=== PATIENT | female | born 1950 | race Caucasian/White ===

== ENCOUNTER 2020-06-30 10:43 | Observation (INO) ==
[2020-06-30] MEDS ORDERED: Isovue-370 500 ML BOTTLE IVP ONE (11:14)
[2020-06-30 11:21] LABS: Basophils % 0.1 %; Eosinophils # 0.1 K/mcL (0.0-0.6); Eosinophils % 0.2 %; Hematocrit 24.8 % (35.3-44.9); Hemoglobin 7.3 g/dL (11.5-15.4); Immature Granulocytes % 0.6 % (0-4); Lymphocytes # 1.3 K/mcL (0.6-4.6); Lymphocytes % 5.5 %; Mean Corpuscular HGB Conc 29.4 g/dL (31.6-35.5); Mean Corpuscular Hemoglobin 27.8 pg (28.0-33.3); Mean Corpuscular Volume 94.3 fL (83.0-100.0); Mean Platelet Volume 9.1 fL (9.4-12.4); Monocytes # 1.2 K/mcL (0.0-1.3); Neutrophils # 20.6 K/mcL (1.6-8.9); Platelet Count 515 K/mcL (140-400); Red Blood Count 2.63 M/mcL (3.82-4.97); Red Cell Distribution Width 16.4 % (11.5-14.5); Segmented Neutrophils % 88.6 %; White Blood Count 23.3 K/mcL (4.3-11.1)
[2020-06-30] MEDS ORDERED: Pantoprazole 40 MG VIAL IVP ONE (11:28)
[2020-06-30 11:45] LABS: Alanine Aminotransferase 10 Units/L (7-52); Alkaline Phosphatase 116 Units/L (34-104); Aspartate Amino Transferase 11 Units/L (13-39); BUN/Creatinine Ratio 29 (6-26); Bilirubin,Total 0.2 mg/dL (0.3-1.0); Blood Urea Nitrogen 17 mg/dL (8-23); Calcium 8.2 mg/dL (8.6-10.3); Carbon Dioxide 30 mEq/L (23-29); Chloride 103 mEq/L (98-107); Glucose 81 mg/dL (70-105); Lipase 7 Units/L (11-82); Osmolality,Calculated 289 (280-300); Potassium 3.7 mEq/L (3.5-5.1); Sodium 139 mEq/L (136-145); eGFR For African Americans > 60 (> 60); eGFR For Non-African Americans > 60 (> 60)
[2020-06-30 12:09] LABS: Troponin I 0.04 ng/mL (< 0.04)
[2020-06-30] MEDS ORDERED: *HR* FentaNYL (PF) 100 MCG/2 ML VIAL IVP ONE (12:48)
[2020-06-30] MEDS ORDERED: Azithromycin 250 MG TABLET PO ONE (13:16)
[2020-06-30] MEDS ORDERED: CefTRIAXone 1,000 MG VIAL IM ONE (13:16)
[2020-06-30] MEDS ORDERED: cefTRIAXone 1,000 MG in Water for inj. (sterile) 10 ML IVP ONE (13:29)
[2020-06-30] MEDS ORDERED: Azithromycin 500 MG in 0.9 % Sodium Chloride 250 ML IVPB ONE (13:29)
[2020-06-30] MEDS ORDERED: 0.9 % Sodium Chloride 250 ML ONE (14:20)
[2020-06-30] MEDS ORDERED: Naloxone 0.4 MG/ML INJ IVP PRN (15:36)
[2020-06-30] MEDS ORDERED: GI Cocktail 40 ML EACH PO ONE (15:38)
[2020-06-30] MEDS ORDERED: Fluticasone Propionate Nasal 50 MCG/SPRAY BOTTLE NS PRN (16:52)
[2020-06-30] MEDS ORDERED: Loratadine 10 MG TABLET PO PRN (16:52)
[2020-06-30] MEDS ORDERED: tiZANidine 4 MG TABLET PO PRN (16:52)
[2020-06-30] MEDS ORDERED: 0.9 % Sodium Chloride 1,000 ML ONE (16:57)
[2020-06-30] MEDS ORDERED: 0.9 % Sodium Chloride 500 ML IVC ONE (17:16)
[2020-06-30] MEDS: Pantoprazole 40 MG VIAL IVP SCH (17:24)
[2020-06-30] MEDS: Gabapentin 400 MG CAPSULE PO SCH ×2 (17:24→20:42)
[2020-06-30] MEDS: 0.9 % Sodium Chloride 1,000 ML IVC SCH (17:24)
[2020-06-30] MEDS: Ipratropium/Albuterol Neb 3 ML IH SCH (20:33)
[2020-06-30] MEDS: Sucralfate 1 GM TABLET PO SCH (20:42)
[2020-06-30] MEDS: traZODone 50 MG TABLET PO SCH (20:42)
[2020-07-01] MEDS: Ipratropium/Albuterol Neb 3 ML IH SCH ×4 (00:18→11:02)
[2020-07-01] MEDS: Pantoprazole 40 MG VIAL IVP SCH ×2 (05:21→19:25)
[2020-07-01] MEDS: 0.9 % Sodium Chloride 1,000 ML IVC SCH (05:22)
[2020-07-01 06:56] LABS: Basophils % 0.1 %; Eosinophils # 0.1 K/mcL (0.0-0.6); Eosinophils % 0.4 %; Hematocrit 27.4 % (35.3-44.9); Hemoglobin 8.1 g/dL (11.5-15.4); Immature Granulocytes % 0.6 % (0-4); Lymphocytes % 4.3 %; Mean Corpuscular HGB Conc 29.6 g/dL (31.6-35.5); Mean Corpuscular Hemoglobin 27.6 pg (28.0-33.3); Mean Corpuscular Volume 93.5 fL (83.0-100.0); Mean Platelet Volume 9.4 fL (9.4-12.4); Monocytes # 1.1 K/mcL (0.0-1.3); Monocytes % 4.5 %; Neutrophils # 21.4 K/mcL (1.6-8.9); Platelet Count 435 K/mcL (140-400); Red Blood Count 2.93 M/mcL (3.82-4.97); Red Cell Distribution Width 17.5 % (11.5-14.5); Segmented Neutrophils % 90.1 %; White Blood Count 23.8 K/mcL (4.3-11.1)
[2020-07-01 07:16] LABS: Platelet Estimate Normal (Normal); Toxic Granulation Present (Not Present)
[2020-07-01 07:17] LABS: Anisocytosis 1+ (Not Present)
[2020-07-01 07:19] LABS: BUN/Creatinine Ratio 36 (6-26); Blood Urea Nitrogen 21 mg/dL (8-23); Calcium 7.8 mg/dL (8.6-10.3); Carbon Dioxide 27 mEq/L (23-29); Chloride 106 mEq/L (98-107); Glucose 77 mg/dL (70-105); Osmolality,Calculated 290 (280-300); Potassium 4.1 mEq/L (3.5-5.1); Sodium 139 mEq/L (136-145); eGFR For African Americans > 60 (> 60); eGFR For Non-African Americans > 60 (> 60)
[2020-07-01] MEDS: cefTRIAXone 1,000 MG in Water for inj. (sterile) 10 ML IVP SCH (09:00)
[2020-07-01] MEDS: Metoprolol XL (24 HR) Succ 25 MG TAB.ER.24H PO SCH (09:00)
[2020-07-01] MEDS: Sucralfate 1 GM TABLET PO SCH ×4 (09:00→20:10)
[2020-07-01] MEDS: Gabapentin 400 MG CAPSULE PO SCH ×4 (09:00→20:10)
[2020-07-01] MEDS: Ipratropium/Albuterol Neb 3 ML IH PRN ×2 (16:34→20:43)
[2020-07-01] MEDS ORDERED: Lidocaine -MPF 2% 5 ML VIAL SQ ONE (16:42)
[2020-07-01] MEDS ORDERED: *HR* Propofol 200 MG/20 ML VIAL IVP ONE (16:42)
[2020-07-01] MEDS: Azithromycin 500 MG in 0.9 % Sodium Chloride 250 ML IVPB SCH (19:24)
[2020-07-01] MEDS: traZODone 50 MG TABLET PO SCH (20:10)
[2020-07-02] MEDS: 0.9 % Sodium Chloride 1,000 ML IVC SCH ×2 (01:11→10:29)
[2020-07-02 01:47] LABS: Basophils % 0.1 %; Eosinophils # 0.2 K/mcL (0.0-0.6); Eosinophils % 1.2 %; Hematocrit 24.2 % (35.3-44.9); Hemoglobin 7.3 g/dL (11.5-15.4); Immature Granulocytes % 0.7 % (0-4); Lymphocytes # 0.9 K/mcL (0.6-4.6); Mean Corpuscular HGB Conc 30.2 g/dL (31.6-35.5); Mean Corpuscular Hemoglobin 27.5 pg (28.0-33.3); Mean Corpuscular Volume 91.3 fL (83.0-100.0); Mean Platelet Volume 9.3 fL (9.4-12.4); Monocytes # 0.7 K/mcL (0.0-1.3); Monocytes % 3.5 %; Neutrophils # 16.9 K/mcL (1.6-8.9); Platelet Count 368 K/mcL (140-400); Red Blood Count 2.65 M/mcL (3.82-4.97); Red Cell Distribution Width 17.2 % (11.5-14.5); Segmented Neutrophils % 89.5 %; White Blood Count 18.9 K/mcL (4.3-11.1)
[2020-07-02 02:02] LABS: BUN/Creatinine Ratio 39 (6-26); Blood Urea Nitrogen 27 mg/dL (8-23); Calcium 7.5 mg/dL (8.6-10.3); Carbon Dioxide 27 mEq/L (23-29); Chloride 109 mEq/L (98-107); Glucose 136 mg/dL (70-105); Osmolality,Calculated 299 (280-300); Potassium 3.7 mEq/L (3.5-5.1); Sodium 141 mEq/L (136-145); eGFR For African Americans > 60 (> 60); eGFR For Non-African Americans > 60 (> 60)
[2020-07-02] MEDS: Pantoprazole 40 MG VIAL IVP SCH (05:46)
[2020-07-02] MEDS: cefTRIAXone 1,000 MG in Water for inj. (sterile) 10 ML IVP SCH (08:19)
[2020-07-02] MEDS: Sucralfate 1 GM TABLET PO SCH ×3 (08:20→16:00)
[2020-07-02] MEDS: Metoprolol XL (24 HR) Succ 25 MG TAB.ER.24H PO SCH (08:20)
[2020-07-02] MEDS: Gabapentin 400 MG CAPSULE PO SCH ×3 (08:20→16:00)
[2020-07-02] MEDS: Ipratropium/Albuterol Neb 3 ML IH PRN ×2 (09:26→15:01)
[2020-07-02 11:49] LABS: Hematocrit 25.1 % (35.3-44.9); Hemoglobin 7.4 g/dL (11.5-15.4)
[2020-07-02] MEDS: Azithromycin 500 MG in 0.9 % Sodium Chloride 250 ML IVPB SCH (12:35)
[2020-07-02 16:15] VITALS: BP 146/87
== END 2020-07-02 16:43 | disposition home or self-care (01) ==
LOC: EMEROOARM 10:43 → 3BNU 10:43
PROVIDERS: ADMIT Internal Medicine; ATTEND Internal Medicine
PROC: ENDOEBX (2020-07-01 14:00)